=== PATIENT | female | born 1950 | race Caucasian/White ===

== ENCOUNTER 2018-02-08 12:02 | Emergency (ER) | payer OTHER ==
[2018-02-08 12:14] VITALS: BP 167/101
[2018-02-08] MEDS ORDERED: Ibuprofen TAB* 600 MG PO ONE (12:26)
[2018-02-08] MEDS ORDERED: Cyclobenzaprine TAB* 10 MG PO ONE (12:27)
--- NOTE | 2018-02-08 12:33 | UC ---
Shoulder Pain HPI - HPI Summary HPI Summary: Woke with stiffness and pain in upper back by L shoulder blade. She tried to get up, stumbled, and fell into a table by her bed. Now has small abrasion and extensive bruising on L anterior shoulder and smaller area on L arm. Denies prior surgery on L shoulder, no hx osteoporosis. - History of Current Complaint Chief Complaint: UCUpperExtremity Stated Complaint: SHOULDER AND BACK PAIN Time Seen by Provider: 02/08/18 12:19 Hx Obtained From: Patient ?: No Onset/Duration: Sudden Onset Timing: Constant Severity Initially: Moderate Severity Currently: Moderate Location Of Pain: Is Discrete @ Pain Intensity: 7 Character: Aching, Stiffness Aggravating Factor(s): Movement, Extension, Abduction Alleviating Factor(s): Rest Associated Signs And Symptoms: Positive: Swelling, Bruising Related History: Dominant Hand Right - Allergies/Home Medications Allergies/Adverse Reactions: Allergies Allergy/AdvReac Type Severity Reaction Status Date / Time No Known Allergies Allergy Verified 02/08/18 12:19 Home Medications: Home Medications Levothyroxine TAB* [Synthroid TAB*] 1 tab PO DAILY 02/08/18 [History Confirmed 02/08/18] PMH/Surg Hx/FS Hx/Imm Hx Endocrine History: Thyroid Disease, Hypothyroidism - Surgical History Surgical History: None - Family History Known Family History: Positive: Hypertension - Social History Occupation: Retired Lives: With Family Alcohol Use: Occasionally Substance Use Type: None Smoking Status (MU): Never Smoked Tobacco Review of Systems Constitutional: Negative Skin: Bruising Eyes: Negative ENT: Negative Respiratory: Negative Cardiovascular: Negative Gastrointestinal: Negative Genitourinary: Negative Motor: Negative Neurovascular: Negative Musculoskeletal: Decreased ROM, Myalgia Neurological: Negative Psychological: Negative Is Patient Immunocompromised?: No All Other Systems Reviewed And Are Negative: Yes Physical Exam Triage Information Reviewed: Yes Appearance: Well-Nourished, Pain Distress - holding shoulder, grimacing Vital Signs: Initial Vital Signs Temp 99.8 F 02/08/18 12:10 Pulse 97 02/08/18 12:10 Resp 12 02/08/18 12:10 BP 167/101 02/08/18 12:10 Pulse Ox 98 02/08/18 12:10 Vital Signs Reviewed: Yes Eye Exam: Normal Eyes: Positive: Conjunctiva Clear ENT Exam: Normal ENT: Positive: Normal ENT inspection, Hearing grossly normal, Pharynx normal, TMs normal Neck exam: Normal, Other - no bony tenderness Neck: Positive: Supple, Nontender, No Lymphadenopathy Respiratory Exam: Normal Respiratory: Positive: Lungs clear, Normal breath sounds, No respiratory distress, No accessory muscle use. Negative: Chest non-tender - Pain with deep inspiration in L upper periscapular area Cardiovascular Exam: Normal Cardiovascular: Positive: RRR, No Murmur Musculoskeletal Exam: Other - L anterior shoulder tenderness, visible bruise with linear abrasion around L clavicle Musculoskeletal: Positive: ROM Limited @ - L shoulder, active extension and abduction only to about 75 degrees from neutral. Neurological Exam: Normal Neurological: Positive: Alert, Muscle Tone Normal Psychological Exam: Normal Skin Exam: Other - bruising, abrasion to L shoulder. Abrasion is very superficial, linear, unable to make it gap, no crepitus. Not centered over fracture. Shoulder Course/Dx - Differential Dx/Diagnosis Differential Diagnosis/HQI/PQRI: Abrasion, AC Separation, Fracture (Closed) Provider Diagnoses: L distal clavical fracture open, displaced. Elevated blood pressure due to pain - Physician Notification/Consults Discussed Patient Care With: Symone Humphreys Time Discussed With Above Provider: 13:05 Discharge - Sign-Out/Discharge Documenting (check all that apply): Discharge/Admit/Transfer - Discharge Plan Condition: Stable Disposition: HOME Prescriptions: Hydrocodone/Acetaminophen [Hydrocodone Bitartrate/AC] 1 - 2 tab PO QID PRN #30 tab MDD 8 PRN Reason: pain Patient Education Materials: Clavicle Fracture (ED) Referrals: Kelle Sahni MD [Primary Care Provider] - Symone Humphreys MD [Medical Doctor] - 2 Days Additional Instructions: Keep the sling on until you follow up with orthopedics. If possible, you may need to sleep reclined in a recliner with the sling. - Billing Disposition and Condition Condition: STABLE Disposition: Home
--- NOTE | 2018-02-08 12:56 | RAD ---
Indication: Left shoulder injury. 3 views of left shoulder demonstrates a fracture through the distal end of the clavicle. Minimal inferior angulation is noted. IMPRESSION: Fracture distal shaft of the clavicle.
== END 2018-02-08 13:32 | disposition home or self-care (01) ==
LOC: MERGE 12:02 → UCEAST 12:02
DX: S42.032A Displaced fracture of lateral end of left clavicle, initial encounter for closed fracture (principal); W08.XXXA Fall from other furniture, initial encounter; Y93.9 Activity, unspecified; Y99.9 Unspecified external cause status; E03.9 Hypothyroidism, unspecified; R03.0 Elevated blood-pressure reading, without diagnosis of hypertension
CPT/HCPCS: 99203; 99213; A9270-GY; G0463

== ENCOUNTER → 2018-06-15 05:57 | Day surgery (SDC) | payer OTHER ==
[~2018-06-15 05:57] MED LIST: Acetaminophen IV 1GM/100ML * 1,000 MG/100 ML VIAL IVPB ONE; Acetaminophen IV 1GM/100ML * 100 ML ONE; Buffered Lidocaine 0.9% SYRIN* 5 ML/SYR SYRINGE INTRADERM ONE; Bupivacaine 0.25% SDV* 30 ML ONE; Dexamethasone IV* 4 MG/ML 1 ML (4 MG) ONE; DiMENhydriNATE IV* 50 MG/ML VIAL IV PUSH PRN; DiMENhydriNATE IV* 50 MG/ML VIAL ONE; Famotidine IV* 10 MG/ML 2 ML (20 mg) IV ONE; Famotidine IV* 10 MG/ML 2 ML (20 mg) ONE; HYDROcodone/ACETAMIN 5-325 MG* 1 TAB ONE; HYDROmorphone INJ1* 1 MG/ML SYRINGE IV PRN; HYDROmorphone INJ1* 1 MG/ML SYRINGE ONE; KETAMINE HCL* 50 MG/ML 10 ML VIAL ONE; Ketorolac INJ* 30 MG/ML 1 ML VIAL ONE; Lidocaine 2% PF * 5 ML VIAL ONE; Midazolam* 1 MG/ML 5 ML VIAL (5 MG) ONE; Morphine VIAL* 10 MG/ML 1 ML VIAL ONE; Naloxone* 0.4 MG/ML 1 ML VIAL IV PRN; Ondansetron INJ* 2 MG/ML VIAL ONE; Propofol* 10 MG/ML 20 ML BTL IV PUSH ONE; Succinylcholine* 20 MG/ML 10 ML VIAL ONE; ceFAZolin 2 GM PREMIX in ORs 2 GM/50 ML BAG IVPB ONE; fentaNYL* 50 MCG/ML 2 ML VIAL (100 MCG VIAL) ONE
[2018-06-15 13:02] VITALS: BP 129/83
--- NOTE | 2018-06-16 07:54 | OP ---
DATE OF OPERATION: 06/15/18 - [facility] DATE OF : 46 SURGEON: Rey Murillo MD PRESIDENT & FOUNDER: DORIS Downs ANESTHESIOLOGIST: Dr. Olsen. ANESTHESIA: General. 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 POST-OP DIAGNOSIS: Left shoulder distal clavicle nonunion. OPERATIVE PROCEDURE: Left distal clavicle nonunion repair with Acumed distal clavicle plate and screws and autogenous local bone grafting and compression. INDICATIONS: Candice is 67. She sustained a distal clavicle fracture just distal to the CC ligament. There was a very large piece distally. It was enough that I was hesitant to excise the entirety of it. 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 She was sent over by another orthopedic surgeon in [facility]. Ultimately I told her she had two problems now, a nonunion and a frozen shoulder. I thought we should address the nonunion so that she could then devote all of her efforts to working on the frozen shoulder. She understands that she has a long road ahead with her shoulder and it will be difficult to get the shoulder loosened back up , I do think it is possible; however, it will take an extensive amount of stretching and therapy. She understands that initially after treating the nonunion she might even get little bit more stiff. She agrees and would like to proceed. ESTIMATED BLOOD LOSS: 2 mL. COMPLICATIONS: None. FINDINGS: See above and below. DESCRIPTION OF PROCEDURE: Candice was seen in the preoperative holding area. The correct site, side and procedure were identified. We came back to the operating room where the arm was prepped and draped in the usual fashion. She was positioned in the lazy beach-chair position. Her fluoroscopic imaging was confirmed. Then the arm was prepped and draped in the usual fashion. I began by making a curvilinear incision over the anterosuperior margin of the clavicle. Dissection was carried down, the clavipectoral fascia was released. A nonunion was exposed. There was abundant fibrous tissue between the two ends of the bone. This was debrided in its entirety until I got back to the normal eek bone edges. There really was not much callous present. I went ahead and opened up the medullary canals and got every thing back to, what looked like a good viable bleeding bone having the potential to heal. I then reduced the fracture. It was a bit difficult. We were able to get it reduced and then had a couple of K-wires traversing the fracture as provisional stabilization. I then placed one 3.0 mm countersunk lag screw from superior and distal to inferior and proximal. This provided excellent compression. I then brought in my Acumed distal clavicle plate. This was contoured to natural bone. I pinned it in place distally and confirmed the alignment on fluoroscopy. I had to move it just a couple of millimeters proximally. It was in a very nice position. I then placed a couple of screws proximally. These were cortical screws. I then placed all the distal screws except for one where I could not get the guide to thread into the locking hole. My first screw was a cortical screw but then all the remainder of the screws were locking screws and the cortical screw was switched out for locking screw as well. Everything was looking good at this point. There was excellent plate to bone apposition. I went ahead and placed two more screws proximally one of which was in compression mode. At this point, everything was extremely tight. Please note that I had taken all of the callous that I had found and morselized it and placed it in between the fracture just as some autogenous bone graft. Final fluoroscopic imaging showed excellent alignment of the fragments and all the hardware was in appropriate position and the screws were of the appropriate length. I therefore irrigated out the wound. The clavipectoral fascia was closed with 3-0 Vicryl suture. The skin was closed with 4-0 Monocryl suture and Steri-Strips. Wounds were dressed. She was woken up and taken to recovery room in stable condition. Please note that I had attempted to move the shoulder a bit and she was very stiff. I did not want to run the risk of any sort of a fracture and I did not manipulate the shoulder much at all. [id number]/[facility] #: [id number] MARGUERITE
== END | disposition home or self-care (01) ==
LOC: OR 05:57
PROVIDERS: ATTEND Orthopaedic Surgery Hand Surgery
DX: S42.032K Displaced fracture of lateral end of left clavicle, subsequent encounter for fracture with nonunion (principal); E03.9 Hypothyroidism, unspecified; M19.90 Unspecified osteoarthritis, unspecified site; K21.9 Gastro-esophageal reflux disease without esophagitis; W19.XXXD Unspecified fall, subsequent encounter; Y92.9 Unspecified place or not applicable
CPT/HCPCS: 76001; J0330; J0690; J1100; J1170; J1240; J1885; J2250; J2270; J2405; J2704; J3010

== ENCOUNTER 2018-06-20 11:03 | Emergency (ER) | payer OTHER ==
--- OUTSIDE RECORDS SUMMARY | 2018-06-20 11:08 | XMS REPORT ---
:1950 External Reference #:[id number] Author Organization [facility] Address [address] [place] [address] [place] [address] Phone [phone] Care Team Providers Name Role Phone Kelle Sahni MD Primary Care Physician Unavailable Payers Type Date Identification Numbers Payment Provider Subscriber Commercial Policy Number: [id number] [employer] Jan Perdue[employer]itha[employer] Number: [id number] [id number] PayID: [id number] [place] [address] Problems Date Description Provider Status Onset: 05/08/2018 Nonunion of fracture Rey Murillo MD Active Family History Date Family Member(s) Problem(s) Comments General brother-parkinsons heart issues. 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 Use Occasionally consumes alcohol Smoking Patient has never smoked Exercise Type/Frequency Exercises regularly Allergies, Adverse Reactions, Alerts Date Description Reaction Status Severity Comments 02/10/2018 NKDA active Medications Medication Date Status Form Strength Qnty SIG Indications Ordering Provider Aleve Active Tablets 220mg 2 tablets Unknown 000 as needed for pain Citracal Plus Active Tablets 1 tab by Unknown 000 mouth twice daily Levothyroxine Active Tablets 50mcg 1 by Unknown Sodium 000 mouth every day Viactiv Active Chewtabs 500-500-40 Unknown 000 mg-Unt-mcg Hydrocodone Hx Tablets 5-300mg Take 1 To Unknown Bitartrate/Aceta 000 - 2 Tablets minophen 10/22/2 By Mouth 018 4 Times A Day as Needed For Pain Vital Signs Date Vital Result Comment 06/02/2018 Height 61.25 inches 5'1.25" Weight 127.50 lb Heart Rate 80 /min BP Systolic Sitting 142 mmHg BP Diastolic Sitting 100 mmHg Respiratory Rate 16 /min Body Temperature 97.8 F Pain Level 5 BMI (Body Mass Index) 23.9 kg/m2 05/08/2018 Height 61.25 inches 5'1.25" Weight 129.00 lb Heart Rate 84 /min BP Systolic 132 mmHg BP Diastolic 94 mmHg Respiratory Rate 16 /min Pain Level 5 BMI (Body Mass Index) 24.2 kg/m2 02/10/2018 Height 63 inches 5'3" Weight 126.00 lb BP Systolic 138 mmHg BP Diastolic 84 mmHg Respiratory Rate 18 /min Body Temperature 98.4 F Pain Level 8 BMI (Body Mass Index) 22.3 kg/m2 Results Description No Information Procedures Description No Information Encounters Type Date Location Provider CPT E/M Dx Office Visit 05/08/2018 [facility] [place] [address] S42.032K 1:00p [employer] [facility] [place] Office Visit 02/10/2018 [facility] [place] [address] S42.032A 10:30a [facility] Office Visit 01/08/2017 [facility] [place] [address] I83.10 4:10p L82.1 D22.5 Plan of Care Future Appointment(s):06/30/2018 8:30 am - Rey Murillo MD at [facility]06/15/2018 7:30 am - Rey Murillo MD at [facility]
[2018-06-20 11:18] VITALS: BP 163/99
--- NOTE | 2018-06-20 12:16 | UC ---
Headache HPI - HPI Summary HPI Summary: 67-year-old woman comes in to clinic today with a chief complaint of a headache. The headache started 3 days ago. It's worse at night. During the nighttime it's circumferential to include some pain in the upper teeth. There was a severe headache at the worst. 2 nights ago the pain was the worst. Last night it was slightly improved. No difficulty with speech or vision changes or weakness or numbness. Patient broke her left clavicle on February 08, 2018. It was not healing therefore she had left clavicle surgery on June 15, 2018. She is presently using a sling and she was taking pain medicines after the surgery. She stopped taking those 3 days ago. She was continuing to take Advil. Her look at the surgical site yesterday and he said it looked clean. Patient states the shoulder is improving and not getting worse. Patient had a dressing over the left shoulder that included part of her left neck and she felt this was pulling on her neck and making it difficult for her to move her neck. She was having neck pain. She wonders if the neck pain is causing the headache. Her modified the dressing yesterday so that it did not pull on her neck. Is also been sleeping in a chair since the surgery. This morning she laid down in the bed and fell asleep. Her neck and her head do not hurt as much sleeping in the bed. No fevers or chills. Right now the headache is a 1-2 out of 10 chest in the forehead there is no rhinorrhea or signs of sinusitis. This is much improved in comparison to last 3 nights. 2 nights ago the pain was at its worst last night was not as bad. Overall the pains improving. Patient notes that her blood pressure has been going up over since she broke her collarbone. At this time she's not on any blood pressure medications. - History Of Current Complaint Chief Complaint: UCHeadache Stated Complaint: HEADACHE Time Seen by Provider: 06/20/18 11:39 Pain Intensity: 4 - Allergies/Home Medications Allergies/Adverse Reactions: Allergies Allergy/AdvReac Type Severity Reaction Status Date / Time No Known Allergies Allergy Verified 06/20/18 11:19 Home Medications: Home Medications Hydrocodone/Acetaminophen [Hydrocodone-Acetamin 5-325 mg] 1 tab PO Q6HR [History Confirmed 06/20/18] PMH/Surg Hx/FS Hx/Imm Hx Endocrine History: Hypothyroidism - Surgical History Surgical History: Yes Surgery Procedure, Year, and Place: Left clavicle - Family History Known Family History: Positive: Hypertension - Social History Alcohol Use: Daily Alcohol Amount: 1-2 PER DAY Substance Use Type: Prescribed Smoking Status (MU): Never Smoked Tobacco Have You Smoked in the Last Year: No Review of Systems All Other Systems Reviewed And Are Negative: Yes Constitutional: Positive: Negative Skin: Positive: Negative Eyes: Positive: Negative ENT: Positive: Negative Respiratory: Positive: Negative Cardiovascular: Positive: Negative Gastrointestinal: Positive: Negative Motor: Positive: Decreased ROM - LEFT SHOULDER Neurovascular: Positive: Negative Musculoskeletal: Positive: Other: - SEE HPI Neurological: Positive: Headache - SEE HPI Psychological: Positive: Negative Is Patient Immunocompromised?: No Physical Exam Triage Information Reviewed: Yes Appearance: Well-Appearing, No Pain Distress, Well-Nourished Vital Signs: Initial Vital Signs Temp 97.7 F 06/20/18 11:15 Pulse 82 06/20/18 11:15 Resp 18 06/20/18 11:15 BP 163/99 06/20/18 11:15 Pulse Ox 99 06/20/18 11:15 Vital Signs Reviewed: Yes Eye Exam: Normal Eyes: Positive: Conjunctiva Clear Neck exam: Normal Neck: Positive: Supple, Nontender Respiratory: Positive: Lungs clear, Normal breath sounds, No respiratory distress Cardiovascular: Positive: RRR Musculoskeletal: Positive: Other: - Left arm is in a sling left arm is in a sling. Hand is full range of motion normal capillary refill no sensation deficits normal radial pulses. Neurological: Positive: Alert, Muscle Tone Normal Psychological Exam: Normal Psychological: Positive: Normal Response To Family, Age Appropriate Behavior Skin Exam: Normal Headache Course/Dx - Course Course Of Treatment: We discussed getting imaging of the head for the headache. At this time clinic we do not have CT available. Overall the headache is improving. It's quite possible that the headache is related to the neck pain being caused by the dressing and the need to sleep in the chair. Since the dressing has been modified and the patient was able sleep in bed the headache has improved. Now the headache is only frontal and it's a 1-2 out of 10. We discussed the possibility of whether or not the hypertension was contributing to the headache or if the headache was contributing to her hypertension. This been no neurologic issues. With the headache improving and only being frontal this time it is not emergent to get head imaging. Discussed all of this with the patient and her . The plan for her head is that if the headache gets worse or she has any sort of neurologic issues then she should go directly to the emergency department. We discussed the hypertension and the plan is for her to talk to her doctor on Friday which is 2 days for further evaluation and care of the hypertension. We also discussed going to the emergency department if the hypertension and the headache increased. For pain the plan is to use only acetaminophen. - Differential Dx/Diagnosis Provider Diagnoses: HEADACHE. HYPERTENSION Discharge - Sign-Out/Discharge Documenting (check all that apply): Patient Departure All imaging exams completed and their final reports reviewed: No Studies - Discharge Plan Condition: Stable Disposition: HOME Patient Education Materials: Acute Headache (ED), Neck Pain (ED), Hypertension (ED) Referrals: Kelle Sahni MD [Primary Care Provider] - Additional Instructions: FOLLOW UP WITH YOUR DOCTOR ON 06/22/18, FOR FURTHER EVALUATION OF YOUR HYPERTENSION AND HEADACHE. GO TO THE EMERGENCY DEPARTMENT FOR ANY WORSENING OF YOUR CONDITION; HEADACHE, HYPERTENSION, YOU FEEL ILL, WEAKNESS, NUMBNESS, DIFFICULTY WITH VISION OR SPEECH OR QUESTIONS OR CONCERNS. - Billing Disposition and Condition Condition: STABLE Disposition: Home
== END 2018-06-20 12:28 | disposition home or self-care (01) ==
LOC: UCEAST 11:03
DX: R51 Headache (principal); I10 Essential (primary) hypertension
CPT/HCPCS: 99211; G0463